=== PATIENT | female | born 1985 | race Two or more races ===

== ENCOUNTER 2017-02-03 17:14 | Outpatient (CLI) | payer MEDICAID ==
[~2017-02-03] VITALS: Ht 162.6 cm; Wt 89.1 kg
--- NOTE | ~2017-02-03 | HP ---
PATIENT'S NAME: [facility] AGE: 31 Y [address] ROOM: [place] [id number] LOCATION: [facility] ADMIT DATE: 02/03/2017 History & Physical DISCHARGE DATE: 02/03/2017 FAMILY PHYSICIAN: Zay Hernandez MD ATTENDING PHYSICIAN: aZy Hernandez DATE OF SERVICE: CHIEF COMPLAINT: Abdominal pain. HISTORY OF PRESENT ILLNESS: The patient is a 31-year-old G2, P0-1-0-2 who presents to Labor and Delivery complaining of abdominal pain that wraps around her back that comes and goes every 20 minutes. It has been persist since this morning. She is currently 27 weeks, 6 days . She denies any vaginal bleeding. She reports positive movement. She also reports that she feels like her underwear have been wet all day long. She does not remember being gushed. PAST MEDICAL HISTORY: None. PAST SURGICAL HISTORY: section. [employer] HISTORY: She has a history of a 36 week delivery for mono di twins in 2009. SOCIAL HISTORY: No tobacco, alcohol, or drug use. REVIEW OF SYSTEMS: Negative except as noted in HPI. FAMILY HISTORY: Noncontributory. PHYSICAL EXAMINATION: VITAL SIGNS: Blood pressure 112/59, heart rate 88, temp 98.7, and respirations 16. GENERAL: She is alert and oriented in no acute distress. ABDOMEN: Soft, gravid, nontender. BACK: Tender along either side of the spine to palpation. No CVA tenderness. : Sterile vaginal exam, she is closed, thick, and high. heart tones 155, moderate variability, positive accels, no decels. E. Lopez no contractions. PATIENT'S NAME: [facility] AGE: 31 Y [address] ROOM: [place] [id number] LOCATION: [facility] ADMIT DATE: 02/03/2017 History & Physical DISCHARGE DATE: 02/03/2017 FAMILY PHYSICIAN: Zay Hernandez MD ATTENDING PHYSICIAN: Zay Hernandez LABORATORY DATA: A clean-catch UA is negative with a specific gravity of 1.005. Like I said, is negative for leukocytes, nitrites, protein, ketones, bilirubin, or blood. AmniSure negative. ASSESSMENT: The patient is a 31-year-old, G2, P-0-1-0-2 with intrauterine at 27 weeks, 6 days with abdominal pain. PLAN: Workup for labor as well as UTI or pyelo is negative. Symptoms do not sound like a kidney stone. status is reassuring. Discussed with the patient that likely she has musculoskeletal pain. Recommended that she can take Motrin for the next few days. She can also take Tylenol. I do not recommend Motrin past the next few days, but she can continue to take Tylenol as needed for her pain. Follow up on Monday with me. MD YOEL MORRIS/myron /[id number] D: [id number] T: [id number] HISTORY & PHYSICAL
[2017-02-03] MEDS ORDERED: PRENATAL 1+1)(P1 TAB PO (18:01)
[2017-02-03 19:00] LABS: AMNISURE RESULT NEGATIVE (NEGATIVE)
[2017-02-03 19:10] LABS: BILIRUBIN URINE NEGATIVE (NEGATIVE); BLOOD URINE NEGATIVE /UL (NEGATIVE); COLOR URINE STRAW (YELLOW); GLUCOSE URINE NEGATIVE (NEGATIVE); KETONE URINE NEGATIVE (NEGATIVE); LEUKOCYTES URINE NEGATIVE /UL (NEGATIVE); NITRITE URINE NEGATIVE (NEGATIVE); PROTEIN URINE NEGATIVE (NEGATIVE); SPEC GRAVITY URINE 1.005 (1.003-1.035); TURBIDITY URINE CLEAR (CLEAR); UROBILINOGEN URINE NORMAL (NORMAL)
== END 2017-02-03 20:24 ==
LOC: GOBM 17:14 → GOBS 17:14 → GOBM 20:24
PROVIDERS: Obstetrics & Gynecology
DX: Z36 Encounter for antenatal screening of mother (principal)
CPT/HCPCS: G0463